=== PATIENT | male | born 1940 | race Caucasian/White ===

== ENCOUNTER 2018-08-31 05:46 | Emergency (ER) | payer MEDICARE ==
--- NOTE | 2018-08-31 10:11 | RAD ---
RIGHT HAND 3 VIEWS: HISTORY: Hand injury. FINDINGS: There are arthritic changes of the hand with changes mainly related to the 1st carpometacarpal joint space and interphalangeal joints. There appears to be soft tissue swelling on the dorsum of the hand at the metacarpophalangeal join level. I do not see an underlying fracture. IMPRESSION: No evidence of fracture. POS: [facility]
== END 2018-08-31 06:51 | disposition home or self-care (01) ==
LOC: MADERS 05:46
DX: S63.612A Unspecified sprain of right middle finger, initial encounter (principal); X50.1XXA Overexertion from prolonged static or awkward postures, initial encounter

== ENCOUNTER 2018-09-02 13:57 | Emergency (ER) | payer MEDICARE ==
[2018-09-02] MEDS ORDERED: Acetaminophen 500 MG TAB ONE (14:22)
[2018-09-02] MEDS ORDERED: Cephalexin 500 MG CAP ONE (14:22)
== END 2018-09-02 14:40 | disposition home or self-care (01) ==
LOC: MADERS 13:57
DX: M65.9 Synovitis and tenosynovitis, unspecified (principal); L03.113 Cellulitis of right upper limb
CPT/HCPCS: 99283

== ENCOUNTER 2019-09-06 08:11 | Emergency (ER) | payer MEDICARE, OTHER ==
--- NOTE | 2019-09-06 08:38 | RAD ---
Radiograph right fifth digit 3 views: HISTORY: 78-year-old male status post acute traumatic injury to right fifth digit FINDINGS: No dislocation. No acute fracture identified. Bony hypertrophy at ulnar side of the DIP joint. Mild D ALYCE at PIP. IMPRESSION: 1. No acute fracture. 2. Osteoarthrosis, especially of the distal interphalangeal joint
[2019-09-06] MEDS ORDERED: Cephalexin 500 MG CAP ONE (08:59)
[2019-09-06] MEDS ORDERED: Cephalexin 250 MG CAP ONE (08:59)
== END 2019-09-06 09:04 | disposition home or self-care (01) ==
LOC: MADERS 08:11
DX: L03.011 Cellulitis of right finger (principal)

== ENCOUNTER 2019-09-11 07:14 | Emergency (ER) | payer MEDICARE, OTHER ==
[2019-09-11] MEDS ORDERED: Lidocaine 1% 20 ML MDV ONE (08:25)
[2019-09-11] MEDS ORDERED: cefTRIAXone\\ROCEPHIN 1 GM VIAL ONE (08:25)
== END 2019-09-11 08:49 | disposition home or self-care (01) ==
LOC: MADERS 07:14
DX: L03.011 Cellulitis of right finger (principal)
CPT/HCPCS: J0696; J2001

== ENCOUNTER 2019-10-25 06:44 | Emergency (ER) | payer MEDICARE, OTHER | END 2019-10-25 07:45 | disposition home or self-care (01) | LOC: MADERS 06:44 | DX: B02.9 Zoster without complications (principal) | CPT/HCPCS: 99282 ==

== ENCOUNTER 2019-11-02 11:22 | Emergency (ER) | payer MEDICARE | END 2019-11-02 13:33 | disposition home or self-care (01) | LOC: MADERS 11:22 | DX: B02.9 Zoster without complications (principal) | CPT/HCPCS: 99283 ==

== ENCOUNTER 2020-04-14 09:31 | Emergency (ER) | payer MEDICARE, OTHER | END 2020-04-14 10:22 | disposition home or self-care (01) | LOC: MADERS 09:31 | DX: L03.011 Cellulitis of right finger (principal) | CPT/HCPCS: 99283 ==

== ENCOUNTER 2020-04-18 09:02 | Emergency (ER) | payer MEDICARE, OTHER | END 2020-04-18 10:48 | disposition home or self-care (01) | LOC: MADERS 09:02 | DX: L03.011 Cellulitis of right finger (principal) | CPT/HCPCS: 99283 ==

== ENCOUNTER 2021-01-03 11:37 | Outpatient (CLI) | payer OTHER, MEDICARE | END 2021-01-03 11:38 | disposition home or self-care (01) | LOC: MADRAD 11:37 | PROVIDERS: ATTEND Physician Assistant | DX: M25.551 Pain in right hip (principal); M25.552 Pain in left hip; M47.816 Spondylosis without myelopathy or radiculopathy, lumbar region | CPT/HCPCS: 72100 ==

== ENCOUNTER 2025-06-26 13:24 | Emergency (ER) | payer BC, MEDICARE ==
[2025-06-26 14:57] LABS: Glucose, Urine (Dipstick) Negative (Negative); Leukocyte Negative (Negative); Protein, Urine (Dipstick) 30 mg/dL (Neg-Trace); Specific Gravity, Urine 1.025 (1.005-1.030)
[2025-06-26 15:15] LABS: RBC/HPF 21-50 HPF (0-3)
[2025-06-26 15:16] LABS: Bacteria/HPF 1+ HPF (None Seen); CAUTI Indications for Culture Dysuria,urgency,freq; WBC/HPF 0-3 HPF (0-3)
[2025-06-26 15:17] LABS: Urine Culture Reflex No No
[2025-06-26 16:03] LABS: Hematocrit 44.8 % (42.0-52.0); Hemoglobin 14.3 g/dL (14.0-18.0); MDiff Complete? YES; Macrocytosis SLIGHT = 6-15 cells (100X) (0-5/hpf); Mean Corpuscular Hemoglobin 31.8 pg (27.0-31.0); Mean Corpuscular Volume 99.4 fl (78.0-98.0); Platelet Adequacy Comment Appears Adequate; Platelet Count 183 10x3/uL (130-400); Red Blood Cell (RBC) Count 4.50 mill/uL (4.70-6.10); White Blood Cell (WBC) Count 5.9 10x3/uL (4.8-10.8)
[2025-06-26 16:08] LABS: ALT (SGPT) 12 U/L (Less than 45); AST (SGOT) 16 U/L (11-34); Albumin 3.9 g/dL (3.1-4.5); Alkaline Phosphatase 60 U/L (40-110); Anion Gap 12 mmol/L (10-20); BUN (Urea Nitrogen) 28 mg/dL (8.4-25.7); Bilirubin, Total 1.1 mg/dL (0.3-1.2); Calc. Creatinine Clearance 0 mL/min (70-130); Calcium 9.0 mg/dL (7.8-10.44); Carbon Dioxide 25 mmol/L (23-31); Chloride 108 mmol/L (98-107); Globulin 2.4 g/dL (2.4-3.5); Glucose 81 mg/dL (83-110); Magnesium 2.0 mg/dL (1.6-2.6); Potassium 4.2 mmol/L (3.5-5.1); Sodium 141 mmol/L (136-145)
== END 2025-06-26 17:12 | disposition home or self-care (01) ==
LOC: MADERS 13:24
DX: R53.1 Weakness (principal); R82.71 Bacteriuria; I48.91 Unspecified atrial fibrillation; F03.90 Unspecified dementia, unspecified severity, without behavioral disturbance, psychotic disturbance, mood disturbance, and anxiety; R29.700 NIHSS score 0; Z79.01 Long term (current) use of anticoagulants
CPT/HCPCS: 70450; 71045; 80053; 81001; 83605; 83735; 84443; 85025; 87086; 93005; 94760

== ENCOUNTER 2025-08-03 15:32 | Emergency (ER) | payer MEDICARE ==
[2025-08-03] MEDS ORDERED: Boostrix 0.5 ML (Tdap) VIAL (>/=7 yrs of age) ONE (16:52)
[2025-08-03] MEDS ORDERED: Bacitracin 1 PK ONE (18:25)
[2025-08-03] MEDS ORDERED: Ketorolac Tromethamine 30 MG (1 mL) VIAL ONE (18:25)
== END 2025-08-03 18:37 | disposition home or self-care (01) ==
LOC: MADERS 15:32
DX: S16.1XXA Strain of muscle, fascia and tendon at neck level, initial encounter (principal); S00.83XA Contusion of other part of head, initial encounter; S60.412A Abrasion of right middle finger, initial encounter; I48.91 Unspecified atrial fibrillation; W01.0XXA Fall on same level from slipping, tripping and stumbling without subsequent striking against object, initial encounter; Z79.01 Long term (current) use of anticoagulants
CPT/HCPCS: 70450; 72125; 90471; 90715; 96374; J1885